=== PATIENT | male | born 1955 | race Caucasian/White ===

== ENCOUNTER → 2021-09-14 | Day surgery (SDC) | payer MEDICARE, OTHER ==
[~2021-09-14] VITALS: Ht 180.3 cm; Wt 81.6 kg
[~2021-09-14] MED LIST: ASPIRIN EC81 MG PO; CIALIS10 MG PO; ONDANSETRON ODT8 MG PO; OXY-IR 5MG5 MG PO; PERCOCET 5-3251 EACH PO
[2021-09-14 12:30] LABS: HCT 43.5 % (42.0-52.0); HGB 14.8 g/dl (13.2-18.0); MCH 30.5 pg (25.0-31.0); MCV 89.7 fL (78.0-100.0); MPV 8.5 fL (6.0-9.5); RBC 4.85 M/uL (4.70-6.00); WBC 4.7 K/uL (4.0-10.5)
[2021-09-14 13:47] LABS: ALBUMIN 4.2 g/dL (3.4-5.0); BILIRUBIN - TOTAL 1.3 mg/dL (0.2-1.0); BUN/CREAT RATIO (CALC) 8.4 RATIO; CREATININE 1.07 mg/dL (0.67-1.17); GLOBULIN (CALCULATION) 3.5 g/dL; POTASSIUM 3.9 mmol/L (3.5-5.1); TOTAL PROTEIN 7.7 g/dL (6.4-8.2)
== END | disposition home or self-care (01) ==
LOC: FAS 11:18
PROVIDERS: Surgery
DX: K40.91 Unilateral inguinal hernia, without obstruction or gangrene, recurrent (principal); Z20.822 Contact with and (suspected) exposure to COVID-19; Z88.6 Allergy status to analgesic agent; Z91.018 Allergy to other foods
CPT/HCPCS: 36415; 80053; J0690; J2250; J2405; J2704; J3010; J7120; U0002